=== PATIENT | female | born 1975 | race Caucasian/White ===

== ENCOUNTER 2016-05-30 10:56 | Emergency (ER) | payer OTHER ==
[2016-05-30 11:19] VITALS: BP 118/76; PULSE 78; RESP 16; TEMP 98.6; O2SAT 98
--- NOTE | 2016-05-30 11:44 | DX ---
Right Elbow, 3 Views Indication: Trauma. Pain and swelling. Comparison: None Findings: The bones are anatomically aligned. No fracture or effusion. Joint spaces are normal. No erosion or osteophyte. Impression: Normal. No acute fracture or effusion.
--- NOTE | 2016-05-30 11:47 | UCPHY ---
H & P Time Seen by Provider: 05/30/16 11:26 Patient Type: New HPI/ROS: HPI Right elbow injury. 41-year-old female by private vehicle. She reports that yesterday she was on a slide with her child. She was going down a slide and at the bottom of the slide she hit her right elbow on the side of the slide. She complains of vague right elbow pain and a vague sensation of tingling from her right mid to proximal arm down through her hand and into all digits. She denies loss of sensation or loss of strength. No other injury. She is right-hand dominant. She denies any history of left shoulder, or neck injury or pain. ROS: Constitutional: No fever, no chills. No weakness. Musculoskeletal: No back pain. No neck pain. As above. No other extremity pain. Skin: No rashes. No lacerations or abrasions. Neurological: No headache. No focal weakness or loss of sensation. Past medical history: Denies any significant relative past medical history. Social history: She is . She is here by herself. She is currently painting her house. Physical Exam: General Appearance: Alert, no distress. This patient is responding to questions appropriately and in full sentences. This patient appears well- hydrated and well-nourished. Eyes: Pupils equal and round no pallor or injection. No lid edema, erythema or injection. Right upper extremity exam: The right shoulder, elbow, wrist joints range in all planes of motion without any significant pain. She is neurologically intact in all myotomes in dermatomes of the right upper extremity. She has normal capillary refill in all digits and distal pulses, radial and ulnar. There is no tenderness on palpation over the radial head and with supination and pronation and palpation over the radial head. There is no noticeable effusion of the left elbow. The right axillary nerve distribution is intact. Neurological: Motor sensory function is grossly intact. Cranial nerves are normal. Gait is normal. Skin: Warm and dry, no rashes. Musculoskeletal: Neck is supple and nontender. As above. Extremities are symmetrical. All joints range without pain or impingement. Database: EKG: Imaging: Right elbow x-ray series: Negative for fracture, subluxation, dislocation. No effusion. Interpreted by me. Procedures: Emergency department course: Patient stated that she took ibuprofen prior to arrival. She is declining pain medications at this time. I reviewed the results of her x-rays with her. I do not feel she require splinting or immobilization at this time. I reviewed the differential diagnosis. I feel that a brachial plexus syndrome, cervical radiculopathy, fracture, subluxation, dislocation are unlikely. She does feel comfortable going home. The plan will be to limit use of the right elbow over the next 2-3 days. If her symptoms are worsening she is to return to the Urgent Care for re-evaluation. She is in agreement. All of her questions were answered. She was discharged in good condition. Differential Diagnosis: The differential diagnosis on this patient includes but is not limited to right elbow sprain, right elbow contusion. Fracture/dislocation/subluxation, brachial plexus syndrome, cervical radiculopathy unlikely. This represents a partial list of diagnoses considered. These considerations are based on history , physical exam, past history, reassessment and diagnostic testing. Smoking Status: Never smoked Constitutional: Initial Vital Signs Temperature (C) 37 C 05/30/16 11:10 Heart Rate 78 05/30/16 11:10 Respiratory Rate 16 05/30/16 11:10 Blood Pressure 118/76 05/30/16 11:10 O2 Sat (%) 98 05/30/16 11:10 O2 Delivery Mode Room Air Allergies/Adverse Reactions: azithromycin Allergy (Mild, Verified 05/30/16 11:13) Hives amoxicillin Allergy (Verified 05/30/16 11:13) Home Medications: Medication Instructions Recorded Albuterol [Proventil Inhaler HFA 2 puffs IH Q4 PRN 12/29/14 (*)] MDM/Departure - Depart Disposition: Home, Routine, Self-Care Clinical Impression: Sprain of right elbow Condition: Good Instructions: Elbow Sprain (ED) Additional Instructions: Read and follow provided instructions. Follow-up with your primary care physician or return to Urgent Care in 2-3 days for re-evaluation if her symptoms have not improved. Ibuprofen dosin mg every 6 hours with meals for the next 3 days only. Take only as needed. Return to the emergency department or urgent care for worsening symptoms, swelling of your right arm, worsening pain, loss of sensation or weakness in her left hand or arm or other serious concerns. Referrals: NONE *PRIMARY CARE P,. [Primary Care Provider] - As per Instructions - PQRS PQRS Measurement: Not applicable.
== END 2016-05-30 11:58 | disposition home or self-care (01) ==
LOC: CED 10:56
DX: S53.401A Unspecified sprain of right elbow, initial encounter (principal); W22.8XXA Striking against or struck by other objects, initial encounter; Y92.830 Public park as the place of occurrence of the external cause
CPT/HCPCS: 73080-PO; 99203-PO; G0463-PO

== ENCOUNTER 2016-06-11 11:38 | Emergency (ER) | payer OTHER ==
[2016-06-11 12:38] VITALS: BP 118/65; PULSE 73; RESP 18; TEMP 98.2; O2SAT 99
--- NOTE | 2016-06-11 13:47 | UCPHY ---
H & P Time Seen by Provider: 06/11/16 12:54 Patient Type: Established HPI/ROS: This patient sustained injury to her right arm 2 weeks ago and came in on May 30 for evaluation. The mechanism of the injury was going down a slide with her toddler and she apparently slammed her elbow and forearm into the bottom of the slide but a curve in the slide. At that time she had a negative elbow x-ray. She still has persistent vague ache in her forearm that occasionally sharp and she saw her chiropractor a few days ago to mention the possibility of an occult fracture that would show up on the initial x-ray so she returns requesting a repeat radiograph concerned about potential occult fracture. She states at baseline she has mild pain. With pronation supination of her arm she occasionally has more for sharp pain in the proximal forearm region. ROS: No numbness or tingling. No swelling or ecchymosis. 5 point ROS is otherwise negative. Past Medical/Surgical History: Mild asthma otherwise healthy Smoking Status: Never smoked Physical Exam: Physical Exam Vital signs are normal. General: No acute distress Eyes: Pupils equal and react to light. Extraocular motions are intact. Lungs: No respiratory distress. Cardiac: Brisk capillary refill is intact throughout. Pulses are 2+ and symmetric in the affected extremity. Extremities: Atraumatic and normal except for right forearm with minimal tenderness to the palmar aspect of the forearm. Minimal tenderness to the radial head region. She maintains good strength and pronation supination without significant pain. She is able flex and extend her elbow without difficulty. There is no swelling tenderness the olecranon or posterior 0 except for mild tenderness in the ulnar groove. Skin: No rash or pallor. Neuro: Alert and oriented x3 with no sensorimotor deficits. Initial differential diagnosis: Muscle strain, occult radial head fracture, interosseous membrane strain of the forearm Constitutional: Initial Vital Signs Temperature (C) 36.8 C 06/11/16 12:35 Heart Rate 73 06/11/16 12:35 Respiratory Rate 18 06/11/16 12:35 Blood Pressure 118/65 06/11/16 12:35 O2 Sat (%) 99 06/11/16 12:35 O2 Delivery Mode Room Air Allergies/Adverse Reactions: azithromycin Allergy (Mild, Verified 05/30/16 11:13) Hives amoxicillin Allergy (Verified 05/30/16 11:13) Home Medications: Medication Instructions Recorded Albuterol [Proventil Inhaler HFA 2 puffs IH Q4 PRN 12/29/14 (*)] Methocarbamol [Robaxin 750 mg (*)] 750 - 1,500 mg PO QID PRN #30 tab 06/11/16 MDM/Departure - MDM Diagnostics: Elbow radiograph: Negative by my interpretation - Depart Disposition: Home, Routine, Self-Care Clinical Impression: Strain of forearm, right Qualifiers: Encounter type: subsequent encounter Qualified Code(s): S56.911D - Strain of unspecified muscles, fascia and tendons at forearm level, right arm, subsequent encounter Condition: Good Instructions: Muscle Strain (ED) Additional Instructions: Diagnosis: Forearm strain Your elbow x-ray remains normal. No evidence of fracture Plan: [id number] mg per 6 hours as needed for pain Methocarbamol muscle relaxant in addition if needed. No driving, alcohol or come methocarbamol Symptoms should improve over the next week or so. Follow up with Dr. Quiroz-yard specialist if you have ongoing symptoms despite the treatment plan. Prescriptions: Methocarbamol [Robaxin 750 mg (*)] 750 - 1,500 mg PO QID PRN #30 tab PRN Reason: Muscle Spasms Referrals: Ethan Orantes MD [Primary Care Provider] - As per Instructions Kayce Quiroz MD [Medical Doctor] - As per Instructions - PQRS PQRS Measurement: NA
== END 2016-06-11 13:56 | disposition home or self-care (01) ==
LOC: CED 11:38
DX: S56.911A Strain of unspecified muscles, fascia and tendons at forearm level, right arm, initial encounter (principal); W22.8XXD Striking against or struck by other objects, subsequent encounter; Y92.830 Public park as the place of occurrence of the external cause
CPT/HCPCS: 73080-PO; 99214-PO; G0463-PO

== ENCOUNTER 2016-07-11 17:31 | Emergency (ER) | payer OTHER ==
[2016-07-11 18:06] VITALS: BP 117/81; PULSE 94; RESP 18; TEMP 98.6; O2SAT 99
--- NOTE | 2016-07-11 18:55 | UCPHY ---
H & P Time Seen by Provider: 07/11/16 18:22 Patient Type: Established HPI/ROS: CHIEF COMPLAINT: Difficulty breathing, dizziness HISTORY OF PRESENT ILLNESS: This is a 41-year-old female presents reporting multiple complaints which been present for the last 10 days. Patient reports upper respiratory infections with a cough. Associated with lightheadedness for the last 5 days. Lightheadedness as described as just feeling foggy and out of it. She denies a fever. Patient developed chest pain and some shortness of breath 4 days ago. She was seen at [facility] days ago and had a full workup. Patient has documentation of this workup which included CBC, electrolytes, EKG, D-dimer, CT scan for pulmonary emboli, and influenza all which were negative. Patient was advised that her persistent cough and some shortness of breath and chest tightness for related to asthma exacerbation in light her preceding URI. She was discharged with an albuterol inhaler as well as prednisone. She has not filled the prednisone. Her symptoms actually improved after being discharged. Today, however, patient describes a sudden onset of vertigo with a room spinning sensation. She also describes feeling as if her throat was closing up and that she could not breathe. She to primary care physician who was concerned this may be some type of allergic reaction and referred her to urgent care. She denies persistent vertigo currently. She denies a headache. Some nasal congestion and facial fullness. Denies chest pain, chest tightness, cough, shortness of breath, or fevers. REVIEW OF SYSTEMS: Aside from elements discussed in the HPI, a comprehensive 10-point review of systems was reviewed and is negative. PAST MEDICAL HISTORY: Asthma, hysterectomy. SOCIAL HISTORY: Nonsmoker. VITAL SIGNS: see nurse's notes. GENERAL: Well-developed, well-nourished, in no acute distress. HEENT: Atraumatic Eyes: PERRL, EOMI, no conjunctival injection. Ears: TM clear bilaterally. Nose: No discharge. Mouth: moist mucous membranes. Pharynx: no erythema, no exudates, no swelling, no abscess. Uvula is midline. No angioedema. No swelling of the lips or eyelids. NECK: Supple, no adenopathy, no meningismus, no tenderness. LUNGS: Clear to auscultation bilaterally, no wheezes, rhonchi or rales. CARDIAC: Regular rate and rhythm, no rubs, murmurs or gallops. ABDOMEN: Soft, nontender, bowel sounds normal. BACK: No CVA tenderness. EXTREMITIES: Normal, no edema, FROM. NEURO: Alert and oriented, grossly nonfocal. SKIN: Warm and dry, no rash. PSYCHIATRIC: Normal mentation, no agitation. Smoking Status: Never smoked Constitutional: Initial Vital Signs Temperature (C) 37.0 C 07/11/16 17:56 Heart Rate 94 07/11/16 17:56 Respiratory Rate 18 07/11/16 17:56 Blood Pressure 117/81 H 07/11/16 17:56 O2 Sat (%) 99 07/11/16 17:56 O2 Delivery Mode Room Air Allergies/Adverse Reactions: azithromycin Allergy (Mild, Verified 05/30/16 11:13) Hives amoxicillin Allergy (Verified 05/30/16 11:13) Home Medications: Medication Instructions Recorded Albuterol [Proventil Inhaler HFA 2 puffs IH Q4 PRN 12/29/14 (*)] Meclizine HCl 12.5 - 25 mg PO BID PRN #20 tablet 07/11/16 Medical Decision Making - Diagnostics EKG Interpretation: 12-LEAD EKG: Please see the full report in [facility]. My interpretation: Sinus rhythm, normal intervals ED Course/Re-evaluation: Patient herself declines further evaluation for intermittent symptoms. She feels like her cough, chest discomfort, and shortness of breath has been improving after being placed on the albuterol inhaler. Her is currently filling her prescription for prednisone. She does have a history of vertigo in the past. I suspect that her vertiginous symptoms may be related to inner ear fullness, upper respiratory complaints, and benign positional vertigo. No evidence of a acute allergic reaction. Patient is comfortable with the discharge plan. Differential Diagnosis: Differential diagnosis of the patient's dizziness was considered including but not limited to peripheral and central causes of vertigo, cardiac arrhythmias, cardiac ischemia, electrolyte disturbances, neurologic causes, orthostatic causes including dehydration, and blood loss. Departure - Departure Disposition: Home, Routine, Self-Care Clinical Impression: Vertigo URI (upper respiratory infection) Qualifiers: URI type: unspecified URI Qualified Code(s): J06.9 - Acute upper respiratory infection, unspecified Condition: Good Instructions: Vertigo (ED), Dizziness (ED) Additional Instructions: I suspect your episode of spinning and dizziness today was related to vertigo. This may be due to your persistent upper respiratory infection. Treatment for vertigo is meclizine, 12-25 mg 2 to 3 times a day. This is available [id number]. You also been given a prescription. I would encourage you to begin taking the prednisone as previously prescribed. You may also obtain Flonase nasal spray and use this to help with upper respiratory congestion symptoms. If you developed a rash, recurrent episode of throat tightening, lip swelling, eyelid swelling, chest discomfort, or other concerns, please return to urgent care. Please follow up with your primary care physician on Sunday as previously scheduled. Referrals: Ethan Orantes MD [Primary Care Provider] - As per Instructions Prescriptions: Meclizine HCl 12.5 - 25 mg PO BID PRN #20 tablet PRN Reason: Dizziness - PQRS PQRS Measurement: Not applicable
--- NOTE | 2016-07-12 22:54 | CPEKG ---
Heart Rate: 74 RR Interval: 811 P-R Interval: 144 QRSD Interval: 94 QT Interval: 380 QTC Interval: 422 P [place]: 69 QRS [place]: 75 T Wave [place]: 42 EKG Severity - NORMAL ECG - EKG Impression: SINUS RHYTHM Electronically Signed By: Shravan Adkins 13-Jul-2016 14:15:02
== END 2016-07-11 19:14 | disposition home or self-care (01) ==
LOC: CED 17:31
DX: R42 Dizziness and giddiness (principal); J06.9 Acute upper respiratory infection, unspecified
CPT/HCPCS: 93010-PO; 99214-PO; G0463-PO

== ENCOUNTER → 2016-07-18 | Outpatient (CLI) | payer OTHER | LOC: CIMAGING 16:57 | PROVIDERS: ATTEND Internal Medicine | DX: R05 Cough (principal); R50.9 Fever, unspecified; R09.89 Other specified symptoms and signs involving the circulatory and respiratory systems | CPT/HCPCS: 71020-PO ==

== ENCOUNTER 2016-10-21 22:18 | Emergency (ER) | payer OTHER ==
[2016-10-21] MEDS ORDERED: LIDOCAINE 2% VISCOUS 15 ML UDCUP PO ONE (23:03)
[2016-10-21] MEDS ORDERED: HYOSCYAMINE SULFATE 0.125 MG TAB PO ONE (23:03)
[2016-10-21] MEDS ORDERED: MAG HYDROX/AL HYDROX/SIMETH 30 ML UDCUP PO ONE (23:03)
--- NOTE | 2016-10-21 23:06 | EDPHY ---
H & P Stated Complaint: Pretzel stuck in throat since 1300 hours. HPI/ROS: HPI CHIEF COMPLAINT: Pretzel stuck in throat since 1:00 p.m. HISTORY OF PRESENT ILLNESS: This patient 41-year-old female, significant past medical history costochondritis, she presents emergency room by private vehicle with a sensation that there is a pretzel stuck in her throat. Patient states around 1:00 p.m. she was eating short pretzel sticks she coughed and then felt like 1 went in the back of her throat is stuck in her throat. She tells me she is able swallow without any difficulty but does have pain when she swallows, no stridor, no drooling, no trouble breathing. She states she has been drinking hot tea and water without any difficulty but has not made improvement in the pain in the back of her throat. She tells me when she cough vigorously she can feel it moving the back of her throat. She tells me she tried to stick her finger down the back of her throat dog rabbit but was unable to do so. Upon arrival here to the emergency room she is resting comfortably no acute distress no stridor, no trouble breathing, no trouble swallowing. Past Medical History: Costochondritis, asthma Past Surgical History: Hysterectomy Social History: Denies daily use of drugs alcohol tobacco products Family History: Noncontributory ROS REVIEW OF SYSTEMS: A comprehensive 10 point review of systems is otherwise negative aside from elements mentioned in the history of present illness. Exam Constitutional appears well nontoxic triage nursing summary reviewed, vital signs reviewed, awake/alert. Eyes posterior pharynx no evidence of trauma or foreign body visualize, normal conjunctivae and sclera, EOMI, PERRLA. HENT normal inspection, atraumatic, moist mucus membranes, no epistaxis, neck supple/ no meningismus, no raccoon eyes. Respiratory no stridor, clear to auscultation bilaterally, normal breath sounds , no respiratory distress, no wheezing. Cardiovascular rate normal, regular rhythm, no murmur, no edema, distal pulses normal. Gastrointestinal soft, non-tender, no rebound, no guarding, normal bowel sounds, no distension, no pulsatile mass. Genitourinary no CVA tenderness. Musculoskeletal no midline vertebral tenderness, full range of motion, no calf swelling, no tenderness of extremities, no meningismus, good pulses, neurovascularly intact. Skin pink, warm, & dry, no rash, skin atraumatic. Neurologic awake, alert and oriented x 3, AAOx3, moves all 4 extremities equally, motor intact, sensory intact, CN II-XII intact, normal cerebellar, normal vision, normal speech. Psychiatric normal mood/affect. Heme/Lymph/Immune no lymphadenopathy. Differential Diagnosis: Includes but is not limited to in a particular order posterior pharynx irritation from prepped stick, scratch the posterior pharynx, foreign body in the posterior pharynx Medical Decision Making: Plan for this patient GI cocktail to see if this numbness upper posterior pharynx, give her pain relief. Also will do soft tissue x-ray of the neck and chest x-ray. Re-evaluation: ED x-ray chest two view: Negative for acute cardiopulmonary disease. No evidence of airway obstruction. No foreign body visualized. ED x-ray soft tissue neck; no foreign body visualized of the neck with soft tissue. 2353: Spoke with ENT account relationship manager, Dr. Carter, Does not feel like she needs an emergent scope. She thinks the pretzel will dissolve on own. 0002: After further evaluation this patient this patient still feels that the pretzels stuck in the posterior pharynx. I am unable to visualize it. Patient again is stated she feels discomfort in the posterior pharynx and when she coughs vigorously she feels like it is moving. She is handling her secretions. There is no stridor. Lungs are clear. Given the patient's discomfort and had these hacking spells, and feels like pretzels moving around the back of her throat with no relief from a GI cocktail I feel that she should be at least monitored in the ER setting. And most likely scope. She has agreed for transfer to [facility] emergency room. I did speak with Dr. Serna who accepts the patient. Reason for transfer possible foreign body in upper airway/posterior pharynx, without much relief with GI cocktail and ongoing symptoms of hacking spells with vigorous coughing with sensation of movement of foreign body. Source: Patient - Personal History LMP (Females 10-55): Hysterectomy Current Tetanus/Diphtheria Vaccine: Yes Current Tetanus Diphtheria and Acellular Pertussis (TDAP): Yes Tetanus Vaccine Date: 2012 - Medical/Surgical History Hx Asthma: Yes Hx Chronic Respiratory Disease: No Hx Diabetes: No Hx Cardiac Disease: No Hx Renal Disease: No Hx Cirrhosis: No Hx Alcoholism: No Hx HIV/AIDS: No Hx Splenectomy or Spleen Trauma: No Other PMH: Asthma, anxiety, costochrondritis-appt with [employer] in Nov, hysterectomy for fibroid, x 2. - Social History Smoking Status: Never smoked Constitutional: Initial Vital Signs Temperature (C) 36.8 C 10/21/16 22:35 Heart Rate 104 H 10/21/16 22:35 Respiratory Rate 18 10/21/16 22:35 Blood Pressure 127/91 H 10/21/16 22:35 O2 Sat (%) 98 10/21/16 22:35 O2 Delivery Mode Room Air Allergies/Adverse Reactions: amoxicillin Allergy (Intermediate, Verified 10/21/16 22:41) Hives azithromycin Allergy (Intermediate, Verified 10/21/16 22:41) Hives Home Medications: Medication Instructions Recorded Albuterol [Proventil Inhaler HFA 2 puffs IH Q4 PRN 12/29/14 (*)] Aleve 10/21/16 Zoloft 25mg (*) 10/21/16 Zyrtec 10/21/16 Medical Decision Making - Diagnostics Imaging Results: Imaging Impressions Chest X-Ray 10/21/16 23:02 Impression: Clear lungs. No acute process. Soft Tissue Neck X-Ray 10/21/16 23:02 Impression: Normal soft tissue planes. - Data Points Medications Given: Discontinued Medications Al Hydroxide/Mg Hydroxide (Maalox Susp) 30 ml PO ONCE ONE Stop: 10/21/16 23:04 Last Admin: 10/21/16 23:14 Dose: 30 ml Hyoscyamine Sulfate (Levsin, Hyomax-Sl) 0.25 mg PO ONCE ONE Stop: 10/21/16 23:04 Last Admin: 10/21/16 23:13 Dose: 0.25 mg Lidocaine (Lidocaine 2% Viscous) 15 ml PO ONCE ONE Stop: 10/21/16 23:04 Last Admin: 10/21/16 23:13 Dose: 15 ml Departure - Departure Disposition: [facility] Clinical Impression: Foreign body in throat Qualifiers: Encounter type: initial encounter Qualified Code(s): T17.208A - Unspecified foreign body in pharynx causing other injury, initial encounter Condition: Fair Referrals: Ethan Orantes MD [Primary Care Provider] - As per Instructions
[2016-10-22 01:03] VITALS: TEMP 97.9
[2016-10-22] MEDS ORDERED: GLUCAGON,HUMAN RECOMBINANT 1 MG VIAL IM ONE (01:11)
[2016-10-22] MEDS ORDERED: LIDOCAINE 4% 5 ML AMP IH ONE (01:12)
[2016-10-22] MEDS ORDERED: LIDOCAINE HCL 4% TOPICAL SOLN 50ML ONE (01:17)
--- NOTE | 2016-10-22 01:20 | EDPHY ---
H & P Stated Complaint: Pretzel stuck in throat since 1300 hours. HPI/ROS: HPI The patient presents with foreign body sensation in throat which has been present since about 1:00 p.m. today when she ate a pretzel. This is been constant, is moderate in severity, is associated with coughing. She was seen earlier today at the [facility] and was transferred here via EMS for further care. During transport, she says that she felt the pretzel migrate to her mid chest and feels that now there. She does not have any vomiting, drooling, is managing her secretions well. She is feeling generally better now than when she was previously evaluated. She says she has had similar milder symptoms before, however they have passed spontaneously. REVIEW OF SYSTEMS Constitutional: No fever, no chills. Eyes: No discharge. ENT: No sore throat. Cardiovascular: No chest pain, no palpitations. Respiratory: No cough, no shortness of breath. Gastrointestinal: No abdominal pain, no vomiting. Genitourinary: No hematuria. Musculoskeletal: No back pain. Skin: No rashes. Neurological: No headache. PMHx: Asthma, costochondritis, History of hysterectomy Soc Hx: Nonsmoker PHYSICAL General Appearance: Alert, no distress Eyes: Pupils equal and round no pallor or injection ENT, Mouth: Mucous membranes moist Respiratory: There are no retractions, lungs are clear to auscultation Cardiovascular: Regular rate and rhythm Gastrointestinal: Abdomen is soft and non-tender, no masses, bowel sounds normal Neurological: A&O, moves all extremities Skin: Warm and dry, no rashes Musculoskeletal: Neck is supple non tender Extremities: symmetrical, full range of motion Psychiatric: Patient is oriented X 3, there is no agitation Source: Patient, Old records Exam Limitations: No limitations - Personal History LMP (Females 10-55): Hysterectomy Current Tetanus/Diphtheria Vaccine: Yes Current Tetanus Diphtheria and Acellular Pertussis (TDAP): Yes Tetanus Vaccine Date: 2012 - Medical/Surgical History Hx Asthma: Yes Hx Chronic Respiratory Disease: No Hx Diabetes: No Hx Cardiac Disease: No Hx Renal Disease: No Hx Cirrhosis: No Hx Alcoholism: No Hx HIV/AIDS: No Hx Splenectomy or Spleen Trauma: No Other PMH: Asthma, anxiety, costochrondritis-appt with Registered Nurse Maternity in Nov, hysterectomy for fibroid, x 2. - Social History Smoking Status: Never smoked Constitutional: Initial Vital Signs Temperature (C) 36.8 C 10/21/16 22:35 Heart Rate 104 H 10/21/16 22:35 Respiratory Rate 18 10/21/16 22:35 Blood Pressure 127/91 H 10/21/16 22:35 O2 Sat (%) 98 10/21/16 22:35 O2 Delivery Mode Room Air Allergies/Adverse Reactions: amoxicillin Allergy (Intermediate, Verified 10/21/16 22:41) Hives azithromycin Allergy (Intermediate, Verified 10/21/16 22:41) Hives Home Medications: Medication Instructions Recorded Albuterol [Proventil Inhaler HFA 2 puffs IH Q4 PRN 12/29/14 (*)] Aleve 10/21/16 Zoloft 25mg (*) 10/21/16 Zyrtec 10/21/16 Medical Decision Making - Diagnostics Imaging Results: Imaging Impressions Chest X-Ray 10/21/16 23:02 Impression: Clear lungs. No acute process. Soft Tissue Neck X-Ray 10/21/16 23:02 Impression: Normal soft tissue planes. Differential Diagnosis: This is a 41-year-old female who presents with foreign body sensation in her throat after eating a pretzel several hours ago. She was evaluated earlier today at [facility] with a chest x-ray and soft tissue of neck that were unremarkable. She had ongoing symptoms, thus was transferred here for further care. During her transport, she felt a pretzel migrate to her mid chest and now is feeling much more comfortable. Imagine it has migrated to her midesophagus. In the emergency room, the patient was observed. She was able to drink several cups of water without any difficulty. She was given nebulized lidocaine and using the glide scope, I was able to visualize her posterior pharynx to the level of her vocal cords and this is all unremarkable though slightly erythematous. No foreign body was visualized. She was given a dose of glucagon IM. She continued to feel better and was discharged home eventually. I have given her follow-up with Gastroenterology given that she has had similar episodes before when swallowing. She may have esophageal dysmotility or a web. She is agreeable for discharge home. - Data Points Medications Given: Discontinued Medications Al Hydroxide/Mg Hydroxide (Maalox Susp) 30 ml PO ONCE ONE Stop: 10/21/16 23:04 Last Admin: 10/21/16 23:14 Dose: 30 ml Glucagon (Glucagen) 1 mg IM EDNOW ONE Stop: 10/22/16 01:12 Last Admin: 10/22/16 02:28 Dose: 1 mg Hyoscyamine Sulfate (Levsin, Hyomax-Sl) 0.25 mg PO ONCE ONE Stop: 10/21/16 23:04 Last Admin: 10/21/16 23:13 Dose: 0.25 mg Lidocaine (Lidocaine 2% Viscous) 15 ml PO ONCE ONE Stop: 10/21/16 23:04 Last Admin: 10/21/16 23:13 Dose: 15 ml Lidocaine HCl (Lidocaine Hcl 4%) 100 mg IH EDNOW ONE Stop: 10/22/16 01:13 Last Admin: 10/22/16 02:11 Dose: 100 mg Departure - Departure Disposition: Home, Routine, Self-Care Clinical Impression: Foreign body in throat Qualifiers: Encounter type: initial encounter Qualified Code(s): T17.208A - Unspecified foreign body in pharynx causing other injury, initial encounter Condition: Good Instructions: Esophageal Foreign Body (ED) Additional Instructions: Please make sure to drink plenty of fluids. Tomorrow you can start on a soft diet in if your feeling better proceed to a normal diet. I have given you information for Gastroenterology. You can call them for a follow-up appointment. Please return to the emergency room if your worse in any way. Referrals: Ethan Orantes MD [Primary Care Provider] - As per Instructions Xavier Delgado MD, FACG [Medical Doctor] - As per Instructions
[2016-10-22] MEDS ORDERED: GLUCAGON,HUMAN RECOMBINANT 1 MG VIAL ONE (02:15)
[2016-10-22 02:29] VITALS: RESP 16
[2016-10-22 03:17] VITALS: BP 118/75; PULSE 76; O2SAT 96
== END 2016-10-22 03:16 | disposition home or self-care (01) ==
LOC: CED 22:18
DX: T17.208A Unspecified foreign body in pharynx causing other injury, initial encounter (principal); J45.909 Unspecified asthma, uncomplicated; X58.XXXA Exposure to other specified factors, initial encounter
CPT/HCPCS: 70360-PO; 71020-PO; J1610

== ENCOUNTER 2016-11-02 18:28 | Emergency (ER) | payer OTHER ==
[2016-11-02 18:48] VITALS: BP 134/80; PULSE 94; RESP 18; TEMP 98.1; O2SAT 99
--- NOTE | 2016-11-02 19:08 | EDPHY ---
H & P Time Seen by Provider: 11/02/16 18:36 HPI/ROS: CHIEF COMPLAINT: Back pain History by patient HISTORY OF PRESENT ILLNESS: 41-year-old woman presents complaining of back pain and something popping in her back. Patient states that for the past month or 2 she has been having chronic chest wall pain and has been diagnosed with costochondritis. She has had an extensive workup for this and been seen in multiple ERs as well as by her primary care physician and [facility]. She has been taking Aleve for this. She notes that her left clavicle seems to be higher than her right and from time to time this is painful while she is driving and has her seatbelt on. Today she was driving and felt pain in that area so she pushed on it and push on her chest wall which seemed to then send a radiating pain around to her back and she moved around she felt something popping. She continues to have pain in her left mid lateral back. Her says he palpated her back and felt some kind of tight band. She did see a chiropractor who worked on her left shoulder 2 days ago. There has been no other trauma. She does feel that this is connected to the ongoing chest pain. REVIEW OF SYSTEMS: As in HPI, and all other systems reviewed and are negative Smoking Status: Never smoked Physical Exam: General Appearance: Alert, awake, well-appearing. Eyes: Pupils equal and round no pallor or injection. ENT, Mouth: Mucous membranes moist. Chest: No anterior tenderness, positive tenderness over left lateral ribs without crepitus or step-off, lungs bilateral clear to auscultation without wheezes, rales, rhonchi Cardiac: Regular rate and rhythm, S1-S2, no murmurs gallops rubs appreciated Gastrointestinal: Abdomen is soft and nontender, no masses, bowel sounds normal. Neurological: Awake, alert and oriented x 3, no pronator drift, normal gait, no pronator drift, DTRs 2+ and equal bilaterally in knees and ankles, Back: No bony tenderness, positive left lateral lower T-spine paraspinal muscle tenderness and palpable spasm particularly over posterior ribs Skin: Warm and dry, no rashes. Musculoskeletal: Neck is supple nontender. Extremities are symmetrical, full range of motion. Psychiatric: Patient has normal affect, there is no agitation. Constitutional: Initial Vital Signs Temperature (C) 36.7 C 11/02/16 18:43 Heart Rate 94 11/02/16 18:43 Respiratory Rate 18 11/02/16 18:43 Blood Pressure 134/80 H 11/02/16 18:43 O2 Sat (%) 99 11/02/16 18:43 O2 Delivery Mode Room Air Allergies/Adverse Reactions: amoxicillin Allergy (Intermediate, Verified 10/21/16 22:41) Hives azithromycin Allergy (Intermediate, Verified 10/21/16 22:41) Hives Home Medications: Medication Instructions Recorded Aleve 10/21/16 Zyrtec 10/21/16 Cyclobenzaprine [Flexeril 10 MG 10 mg PO TID PRN #12 tab 11/02/16 (*)] MDM/Departure - [facility] ED Course/Re-evaluation: 41-year-old woman presents with chronic ongoing chest wall pain and now with some mid thoracic pain and exam suggestive of some muscle spasm. There is no evidence of systemic toxicity or serious injury or impairment. We will give the patient a trial of muscle relaxants and she can follow up with her primary care physician. - Depart Disposition: Home, Routine, Self-Care Clinical Impression: Chest wall pain, chronic Back pain Qualifiers: Back pain location: thoracic back pain Chronicity: acute Back pain laterality: left Qualified Code(s): M54.6 - Pain in thoracic spine Condition: Good Instructions: Back Pain (ED) Additional Instructions: You were seen by Dr. Hoa Vanegas today. Continue your Aleve. Try massage for your back. Consider acupuncture for your ongoing chest symptoms. Try Flexeril to relax her back for the next day or two. Do not drive while taking this medicine. Return for any worsening or new concerns. Prescriptions: Cyclobenzaprine [Flexeril 10 MG (*)] 10 mg PO TID PRN #12 tab PRN Reason: Spasms Referrals: Ethan Orantes MD [Primary Care Provider] - As per Instructions
== END 2016-11-02 19:12 | disposition home or self-care (01) ==
LOC: CED 18:28
DX: R07.89 Other chest pain (principal); M54.6 Pain in thoracic spine; G89.29 Other chronic pain

== ENCOUNTER 2017-03-19 13:03 | Emergency (ER) | payer OTHER ==
[2017-03-19 13:19] VITALS: BP 111/79; PULSE 90; RESP 16; TEMP 98.1; O2SAT 99
[2017-03-19] MEDS ORDERED: ACETAMINOPHEN 500 MG TAB PO ONE (13:58)
--- NOTE | 2017-03-19 14:15 | EDPHY ---
H & P Time Seen by Provider: 03/19/17 13:30 HPI/ROS: This patient complains of pain in her elbow on intermittent paresthesias in her right forearm and hand. I saw this patient June 11 of this year with a bone forearm symptoms after minor trauma to the same elbow on May 30 evaluated here with normal elbow x-rays on those visits diagnosed with an elbow sprain and the patient reports that she improved after the last visit overt. Of a few weeks but over the past week developed recurrence of pain that she describes as sharp numbness burning in nature that seems related to position worsening hanging with flexion of the elbow and extending into the forearm and hand. When asked about the tingling she does not recall the exact location that she feels the tingling and states that she thinks it is her whole hand. At 10:00 a.m. this morning while seated at rest she developed worsening symptoms and came in for evaluation. She reports taking 2 Aleve prior to arrival with mild improvement. Her pain was 8/10 at peak intensity is currently is 6/10. ROS: Musculoskeletal-No recent injuries or other musculoskeletal pains. No swelling the affected elbow. She denies frequently leaning on a flexed elbow Neuro: No numbness or weakness. Paresthesias as noted per HPI in the affected right upper extremity HEENT: No complaints pulmonary: No shortness of breath Cardiovascular: No pallor or bit the arm that she has noticed. No discoloration of the arm Integumentary: No skin rash 7 point ROS is otherwise negative. Social History: Patient is a homemaker Smoking Status: Never smoked Physical Exam: Physical Exam Vital signs are normal. General: No acute distress Eyes: Pupils equal and react to light. Extraocular motions are intact. Lungs: No respiratory distress. Cardiac: Brisk capillary refill is intact throughout. Pulses are 2+ and symmetric in the affected extremity. Skin: No rash or pallor. Extremities: Atraumatic normal except for right upper extremity Right upper extremity: No shoulder tenderness or limitation range of motion Right elbow: Patient has tenderness in the condylar groove and a positive Tinel 's with increased symptoms with tapping on the ulnar nerve region of the elbow in the condylar groove hyperflexion of the elbow also increases her symptoms. Appreciate no muscle wasting to the affected upper extremity. Neuro: Alert with no sensorimotor deficits appreciated in the upper extremity. She has normal light touch sensation in radial ulnar nerve distributions with 5/5 strength in hand intrinsics, flexion and extension of fingers and wrist. Initial differential diagnosis: Bony abnormality, ulnar nerve entrapment, reflex sympathetic dystrophy Constitutional: Initial Vital Signs Temperature (C) 36.7 C 03/19/17 13:16 Heart Rate 90 03/19/17 13:16 Respiratory Rate 16 03/19/17 13:16 Blood Pressure 111/79 03/19/17 13:16 O2 Sat (%) 99 03/19/17 13:16 O2 Delivery Mode Room Air Allergies/Adverse Reactions: amoxicillin Allergy (Intermediate, Verified 03/19/17 13:25) Hives azithromycin Allergy (Intermediate, Verified 03/19/17 13:25) Hives Home Medications: Medication Instructions Recorded Wellbutrin Xl 11/02/16 Montelukast Sodium 03/19/17 traMADol [Ultram 50 mg (*)] 50 - 100 mg PO Q4 PRN #20 tab 03/19/17 MDM/Departure - MDM Diagnostics: Three-view elbow x-ray: Negative for abnormalities by my interpretation Imaging Results: Imaging Impressions Elbow X-Ray 03/19/17 13:21 Impression: Normal. No bone lesion, effusion, or arthropathy. Imaging: I viewed and interpreted images myself Medications Given: Discontinued Medications Acetaminophen (Tylenol) 1,000 mg PO EDNOW ONE Stop: 03/19/17 13:59 Last Admin: 03/19/17 14:04 Dose: 1,000 mg ED Course/Re-evaluation: Discussion: Patient seems to be having ulnar nerve entrapment at the elbow based on the nature of her intermittent sharp pain paresthesias along with worsening her symptoms with flexion at the elbow and positive Tinel sign with tapping ulnar nerve at the condylar groove of the elbow. I counseled regarding this. Patient is placed in Audi wrap for comfort and advised her to take NSAIDs regularly for the next week or so with plan for Tylenol and tramadol in addition if needed for pain that prevents sleep. She will follow up with orthopedics for any ongoing symptoms. - Depart Disposition: Home, Routine, Self-Care Clinical Impression: Ulnar nerve entrapment at right elbow Condition: Good Instructions: Cubital Tunnel Syndrome (ED) Additional Instructions: Diagnosis: Right ulnar nerve entrapment-also symptoms called cubital tunnel syndrome Plan: Continue anti-inflammatories either Aleve or ibuprofen regularly for the next 5-7 days. Tylenol in addition if needed Tramadol in addition if needed for pain that prevents sleep. No driving, or other activities require motor skills or use of alcohol while taking tramadol. Gentle stretching each day Audi wrap for padding. Avoid prolonged elbow flexion Call Dr. Davis-neurology specialist arrange follow-up appointment Prescriptions: traMADol [Ultram 50 mg (*)] 50 - 100 mg PO Q4 PRN #20 tab PRN Reason: breakthrough pain Referrals: Ethan Orantes MD [Primary Care Provider] - As per Instructions Whitley Davis MD [Medical Doctor] - As per Instructions
== END 2017-03-19 14:20 | disposition home or self-care (01) ==
LOC: CED 13:03
DX: G56.21 Lesion of ulnar nerve, right upper limb (principal)
CPT/HCPCS: 73080-PO

== ENCOUNTER 2018-04-24 10:47 | Emergency (ER) | payer OTHER ==
[2018-04-24] MEDS ORDERED: ONDANSETRON 4 MG/2 ML VIAL IVP ONE (11:24)
[2018-04-24] MEDS ORDERED: NS 1,000 ML IV ONE (11:24)
[2018-04-24] MEDS ORDERED: KETOROLAC 15 MG/1 ML SDV IVP ONE (11:24)
--- NOTE | 2018-04-24 11:29 | EDPHY ---
H & P Stated Complaint: left sided abd pain and nausea since sunday Time Seen by Provider: 04/24/18 10:56 HPI/ROS: CHIEF COMPLAINT: Left-sided pain History by patient HISTORY OF PRESENT ILLNESS: 43 year old otherwise healthy woman presents complaining of 2 days of nausea, anorexia and"rumbling" stomach. Yesterday in the afternoon she developed sudden onset of left upper quadrant/flank pain. This has been mostly constant but sometimes intermittent, non positional. She describes it as severe. It radiates into her back and she had 1 episode that radiated down into her groin. There is no associated hematuria, frequency, urgency or dysuria. She denies any fever. She had bowel movement x2 yesterday and once today but no diarrhea and in fact feels more constipated. She was able to eat yesterday but does think the pain maybe got worse after eating. She had some unexplained left calf pain a week ago for which she was seen at [facility] and had a DVT ruled out by ultrasound. She has taken Tylenol and ibuprofen with relief for about an hour. She has not taken anything since last night. She has never had anything like this before. Her father had complicated diverticulitis requiring surgery several years ago. She is worried she might have diverticulitis. REVIEW OF SYSTEMS: As in HPI, and all other systems reviewed and are negative Source: Patient - Personal History LMP (Females 10-55): Hysterectomy Tetanus Vaccine Date: 2012 - Medical/Surgical History Hx Asthma: Yes Hx Chronic Respiratory Disease: No Hx Diabetes: No Hx Cardiac Disease: No Hx Renal Disease: No Hx Cirrhosis: No Hx Alcoholism: No Hx HIV/AIDS: No Hx Splenectomy or Spleen Trauma: No Other PMH: Asthma, anxiety, hysterectomy for fibroid, x 2. - Social History Smoking Status: Never smoked - Physical Exam Exam: General Appearance: Alert, nontoxic-appearing, comfortable appearing Head: normocephalic, atraumatic Eyes: Pupils equal and round, reactive to light, no pallor or injection. Mouth: Mucous membranes moist. Oropharynx clear Neck: No bony tenderness, full range of motion Respiratory: Normal, effort, lungs are clear to auscultation. No wheezes, rales or rhonchi. Cardiovascular: Regular rate and rhythm. S1, S2, no murmurs, gallops or rubs appreciated Chest: Mild tenderness along left the lower posterior ribs. No sternal tenderness. Gastrointestinal: Abdomen is soft and nontender, no masses, bowel sounds normal. Back: Mild left CVA tenderness, no midline tenderness, no right CVA tenderness Neurological: Awake, alert and oriented x 3, cranial nerves 2-12 intact, no pronator drift, normal gait, Skin: Warm and dry, no rashes, but sensitive to the touch along left mid lower back and red area Musculoskeletal: No deformities or tenderness. Extremities: full range of motion, no edema, DP2+ bilat Psychiatric: Patient has normal affect, there is no agitation. Constitutional: Initial Vital Signs Temperature (C) 36.8 C 04/24/18 10:56 Heart Rate 90 04/24/18 10:56 Respiratory Rate 18 04/24/18 10:56 Blood Pressure 123/72 H 04/24/18 10:56 O2 Sat (%) 96 04/24/18 10:56 O2 Delivery Mode Room Air Allergies/Adverse Reactions: amoxicillin Allergy (Intermediate, Verified 04/24/18 10:55) Hives azithromycin Allergy (Intermediate, Verified 04/24/18 10:55) Hives levofloxacin [From Levaquin] Allergy (Verified 04/24/18 10:55) Home Medications: Medication Instructions Recorded Albuterol 04/24/18 Meloxicam 7.5 mg PO DAILY #10 tablet 04/24/18 Ondansetron Odt [Zofran Odt 4 mg 4 mg PO Q4 PRN #12 tab 04/24/18 (*)] Medical Decision Making - Diagnostics Imaging Results: Imaging Impressions Chest X-Ray 04/24/18 11:23 Impression: Clear lungs. No acute process. ED Course/Re-evaluation: 43-year-old woman with no significant past medical history put on review of medical records multiple ER visits here and other ERs for for id complaints presents with left flank pain and"gurgly stomach. Here the patient is hemodynamically stable and taking oral fluids without difficulty. Urinalysis showed no evidence of bladder infection making pyelonephritis or urolithiasis unlikely, but positive for ketones and high specific gravity consistent with some dehydration. CBC was within normal limits. Chemistries are notable for an elevated creatinine, 0.1 points above the upper limit of normal, and a low potassium, no anion gap, also consistent with some dehydration. Patient was given IV fluids, oral potassium and oral fluids. On further discussion patient notes that her creatinine has been up when it has been measured in the past. Influenza test was also negative. Patient was given IV fluids, as IV Zofran and ketorolac after which she was feeling somewhat better although she noted that she still continued to have some left back and side pain when she moves in a certain direction. At this point, cause of her symptoms are unclear but I find no significant infectious cause or evidence of acute abdomen. We discussed return precautions including but not limited to development of a rash along her left side as her skin sensitivity could represent very early shingles, and also including but not limited to inability to take oral fluids, fever, uncontrolled pain. Otherwise I recommend she follow up with her primary care physician. Patient her understand agreeable to this plan. - Data Points Laboratory Results: 04/24/18 11:43 POC Sodium 141 mEq/L mEq/L (135-145) POC Potassium 3.1 mEq/L L mEq/L (3.3-5.0) POC Chloride 106.0 mEq/L mEq/L (97-110) POC Total CO2 27 mEq/L mEq/L (22-31) POC BUN 7 mg/dL mg/dL (7-23) POC Creatinine 1.1 mg/dL H mg/dL (0.6-1.0) POC Glucose 90 mg/dL mg/dL (70-100) POC Calcium 9.8 mg/dL mg/dL (8.5-10.4) Medications Given: Discontinued Medications Sodium Chloride (Ns) 1,000 mls @ 0 mls/hr IV ONCE ONE PRN Reason: Wide Open Stop: 04/24/18 11:25 Last Admin: 04/24/18 11:50 Dose: 1,000 mls Ketorolac Tromethamine (Toradol) 15 mg IVP EDNOW ONE Stop: 04/24/18 11:25 Last Admin: 04/24/18 11:55 Dose: 15 mg Ondansetron HCl (Zofran) 4 mg IVP EDNOW ONE Stop: 04/24/18 11:25 Last Admin: 04/24/18 11:51 Dose: 4 mg Potassium Chloride (Potassium Chloride Oral Liquid) 20 meq PO EDNOW ONE Stop: 04/24/18 12:08 Last Admin: 04/24/18 12:23 Dose: 20 meq Point of Care Test Results: CBC CBC Collection Date 04/24/18 CBC Collection Time 12:30 WBC 4.3 RBC 4.84 HGB 15.1 HCT 43.3 PLT 285 Neut # 2.7 Neut 63.7 LYMPH # 1.2 LYMPH 26.9 Other WBC # 0.4 Other WBC 9.4 MCV 89.5 Chemistry 04/24/18 11:43 POC Sodium 141 mEq/L mEq/L (135-145) POC Potassium 3.1 mEq/L L mEq/L (3.3-5.0) POC Chloride 106.0 mEq/L mEq/L (97-110) POC Total CO2 27 mEq/L mEq/L (22-31) POC BUN 7 mg/dL mg/dL (7-23) POC Creatinine 1.1 mg/dL H mg/dL (0.6-1.0) POC Glucose 90 mg/dL mg/dL (70-100) POC Calcium 9.8 mg/dL mg/dL (8.5-10.4) Urine Dip Collection Date 04/24/18 Collection Time 11:38 Specific [place] (1.002-1.030) 1.025 PH (5.0-7.5) 6.5 Leukocytes (Negative) Negative Nitrites (Negative) Negative Protein (Negative) Negative Glucose (Negative) Negative Ketones (Negative) Trace Urobilnogen (0.2-1.0 EU) 0.2 Bilirubin (Negative) Negative Blood (Negative) Negative Departure - Departure Disposition: Home, Routine, Self-Care Clinical Impression: Acute left flank pain Condition: Good Instructions: Flank Pain (ED) Additional Instructions: You were seen by Dr. Hoa Vanegas today. The cause of her symptoms today is unclear. We have not found a serious cause at this time. Your chest x-ray was normal. Your potassium was slightly low and her creatinine was slightly high. Please have your primary care physician recheck your potassium in a week to 10 days. You may take meloxicam and/or acetaminophen for pain. Drink plenty of fluids. You may take Zofran as needed for nausea and vomiting. Return for any worsening or new concerns, including but not limited to pain out of control, inability to take fluids, rash in the area of pain, high fever or other concerns.. Referrals: Libia Barfield DO [Primary Care Provider] - As per Instructions Prescriptions: Meloxicam 7.5 mg PO DAILY #10 tablet Ondansetron Odt [Zofran Odt 4 mg (*)] 4 mg PO Q4 PRN #12 tab PRN Reason: Nausea and vomiting
[2018-04-24] MEDS ORDERED: POTASSIUM CL 20 MEQ/15 ML UDCUP PO ONE (12:07)
[2018-04-24 15:37] VITALS: BP 114/75
== END 2018-04-24 13:20 | disposition home or self-care (01) ==
LOC: CED 10:47
DX: R10.32 Left lower quadrant pain (principal)
CPT/HCPCS: 71046-PO; 80048-ER; 96361-ER; 96374-ER; 96375-ER; 99284-ER; J1885; J2405